=== PATIENT | male | born 1995 | race Caucasian/White ===

== ENCOUNTER 2017-06-29 10:26 | Emergency (ER) | payer SELFPAY ==
[2017-06-29 10:41] VITALS: TEMP 98; O2SAT 96
[2017-06-29] MEDS ORDERED: Albuterol-Ipratrop 3 mg / 0.5 (3 ml) UD INH STA ×3 (10:55→11:48)
[2017-06-29] MEDS ORDERED: Albuterol-Ipratrop 3 mg / 0.5 (3 ml) UD ONE ×3 (10:59→11:49)
--- NOTE | 2017-06-29 11:00 | C.PDOC ---
History Of Present Illness 22 y/o male presents to ED with complaints of cough for 1 month but worsened for 1 week with associated subjective fever. Patient reports no history of asthma and denies chest pain, sob or any other complaints at this time. Time Seen by Provider: 06/29/17 10:54 Chief Complaint (Nursing): Cough, Cold, Congestion History Per: Patient History/Exam Limitations: no limitations Onset/Duration Of Symptoms: Days Current Symptoms Are (Timing): Still Present Associated Symptoms: Fever, Cough Past Medical History Reviewed: Historical Data, Nursing Documentation, Vital Signs Vital Signs: Last Vital Signs Temp 98 F 06/29/17 10:40 Pulse 94 H 06/29/17 10:40 Resp 20 06/29/17 10:40 BP 131/92 H 06/29/17 10:40 Pulse Ox 96 06/29/17 12:32 - Medical History PMH: No Chronic Diseases Surgical History: No Surg Hx Family History: States: No Known Family Hx - Social History Hx Alcohol Use: No Hx Substance Use: No - Immunization History Hx Tetanus Toxoid Vaccination: No Hx Influenza Vaccination: No Hx Pneumococcal Vaccination: No Review Of Systems Except As Marked, All Systems Reviewed And Found Negative. Constitutional: Positive for: Fever Respiratory: Positive for: Cough Physical Exam - Physical Exam Appears: Non-toxic, No Acute Distress Skin: Normal Color, Warm, Dry, No Rash Head: Atraumatic, Normacephalic Eye(s): bilateral: Normal Inspection Ear(s): Bilateral: Normal Oral Mucosa: Moist Throat: Normal, No Erythema, No Exudate Neck: Supple Cardiovascular: Rhythm Regular Respiratory: No Rales, No Rhonchi, Wheezing (bilateral) Gastrointestinal/Abdominal: Soft, No Tenderness, No Guarding, No Rebound Extremity: Normal ROM, Capillary Refill (<2 seconds) Neurological/Psych: Oriented x3, Normal Speech (Speaking in full sentences) ED Course And Treatment O2 Sat by Pulse Oximetry: 96 (RA) Pulse Ox Interpretation: Normal Progress Note: On re evaluation after x3 neb treatment, lungs clear and patient is requesting to be discharged Reevaluation Time: 12:32 Reassessment Condition: Improved Disposition - Disposition Disposition: HOME/ ROUTINE Disposition Time: 01:00 Condition: STABLE Additional Instructions: please follow up with your doctor/specialist. Prescriptions: Albuterol 0.083% [Albuterol 0.083% Inhal Yudith (2.5 mg/3 ml) UD] 2.5 mg IH Q4 PRN #20 neb PRN Reason: Wheezing Mask, Face [Nebulizer Aerosol Mask Adult] 1 dev XX PRN PRN #1 dev PRN Reason: Wheezing Nebulizer [Aeroeclipse II] 1 each MC Q4 PRN #1 each PRN Reason: Wheezing Prednisone 50 mg PO DAILY #5 tablet Instructions: Acute Bronchitis (ED), Wheezing (ED) Forms: [employer] ([place]), Work Excuse - Clinical Impression Clinical Impression: Bronchitis, Wheezing - Scribe Statement The provider has reviewed the documentation as recorded by the Veronicaibbernice Davis All medical record entries made by the Nakia were at my direction and personally dictated by me. I have reviewed the chart and agree that the record accurately reflects my personal performance of the history, physical exam, medical decision making, and the department course for this patient. I have also personally directed, reviewed, and agree with the discharge instructions and disposition.
--- NOTE | 2017-06-29 11:06 | RAD ---
HISTORY: cough COMPARISON: No prior. TECHNIQUE: Chest PA and lateral FINDINGS: LUNGS: No active pulmonary disease. PLEURA: No significant pleural effusion identified. No pneumothorax apparent. CARDIOVASCULAR: Normal. OSSEOUS STRUCTURES: No significant abnormalities. VISUALIZED UPPER ABDOMEN: Normal. OTHER FINDINGS: None. IMPRESSION: No active disease.
[2017-06-29 13:42] VITALS: BP 125/75; PULSE 95; RESP 18
== END 2017-06-29 13:43 | disposition home or self-care (01) ==
LOC: C.ER 10:26
DX: J40 Bronchitis, not specified as acute or chronic (principal); R06.2 Wheezing